=== PATIENT | male | born 1975 | race Caucasian/White ===

== ENCOUNTER 2023-10-20 09:08 | Outpatient (REF) | payer OTHER, SELFPAY ==
[2023-10-20 09:37] LABS: SARS-CoV-2 Ag NEGATIVE (NEGATIVE)
[2023-10-20 15:46] LABS: SARS-CoV-2 NAA NOT DETECTED (NOT DETECTE)
== END 2023-10-20 09:09 | disposition home or self-care (01) ==
LOC: LAB 09:08
PROVIDERS: PCP Nurse Practitioner; Visit Provider Nurse Practitioner
DX: Z20.822 Contact with and (suspected) exposure to COVID-19 (principal)
CPT/HCPCS: 87635; 87811

== ENCOUNTER 2024-01-19 01:28 | Emergency (ER) | payer OTHER, SELFPAY ==
[2024-01-19 01:33] VITALS: BP 143/106; PULSE 89; RESP 18; TEMP 36.6; O2SAT 99; BMI 20.4
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
--- NOTE | 2024-01-19 01:43 | ED.DENTAL1 ---
HPI - Dental/Oral General Chief complaint: Dental/Oral Stated complaint: dental/gum problem Time Seen by Provider: 01/19/24 01:40 Source: patient Mode of arrival: walk-in Limitations: no limitations History of Present Illness HPI Narrative: presents complaining of dental pain. Past history of substance abuse. No fever. Points to right pos. molar area as site of pain. No fever or problems swallowing Related Data Home Medications ?Medication ?Instructions ?Recorded ?Confirmed dextroamphetamine-amphetamine 30 30 mg PO BID 01/19/24 01/19/24 mg tablet gabapentin 300 mg capsule 300 mg PO BID 01/19/24 01/19/24 Allergies Allergy/AdvReac Type Severity Reaction Status Date / Time pencillin AdvReac stomach Uncoded 01/19/24 01:44 Review of Systems ROS Status of ROS 10 or more systems reviewed and unremarkable except as noted in history and below [facility] Medical History (Updated 01/19/24 @ 01:47 by Lydia Taveras) Drug abuse in remission ?F19.11 - Other psychoactive substance abuse, in remission (ICD-10) Neck pain ?M54.2 - Cervicalgia (ICD-10) ADD (attention deficit disorder) ?F98.8 - Other specified behavioral and emotional disorders with onset usually occurring in childhood and adolescence (ICD-10) Social History (Updated 01/19/24 @ 01:48 by Lydia Taveras) Within the past year, how often did you have a drink containing alcohol: monthly or less Smoking status: Current every day smoker Nicotine containing products detail: smokes 1pk daily Non-prescribed substance use: former substance user and cannabis (any form) Non-prescribed substance use details: currently uses THC but states use to use everything Exam Constitutional Vital Signs, click to edit/add: Last Vital Signs Temp 98 F 01/19/24 01:33 Pulse 89 01/19/24 01:33 Resp 18 01/19/24 01:33 BP 143/106 H 01/19/24 01:33 Pulse Ox 99 01/19/24 01:33 O2 Del Method Room Air 01/19/24 01:33 Common normals: no apparent distress, average body habitus, oriented x3, no limitations, healthy appearing, alert and well nourished HENRI Common normals: normocephalic and head/scalp atraumatic Other: diffuse dental caries Eye Common normals: EOMs intact bilaterally and conjunctivae normal Respiratory Common normals: normal respiratory effort, no retractions and no use of accessory muscles Cardio Common normals: regular rate, regular rhythm, S1 normal heart sound and S2 normal heart sound Extremity Common normals: normal to inspection and full ROM Neuro Common normals: oriented x3, CN's II-XII intact bilaterally, moves all extremities and no focal motor deficits Psych Appearance: grossly normal Course Vital Signs Vital signs: Vital Signs Temperature 98 F 01/19/24 01:33 Pulse Rate 89 01/19/24 01:33 Respiratory Rate 18 01/19/24 01:33 Blood Pressure 143/106 H 01/19/24 01:33 Pulse Oximetry 99 01/19/24 01:33 Oxygen Delivery Method Room Air 01/19/24 01:33 Temperature 98 F 01/19/24 01:33 Pulse Rate 89 01/19/24 01:33 Respiratory Rate 18 01/19/24 01:33 Blood Pressure 143/106 H 01/19/24 01:33 Pulse Oximetry 99 01/19/24 01:33 Oxygen Delivery Method Room Air 01/19/24 01:33 MDM - Dental/Oral MDM Narrative Medical decision making narrative: patient presents complaining of dental pain. has diffuse dental caries. Mild tenderness right upper pos. molar. No obvious swelling or lymph nodes. Describes throbbing pain. Will treat as an early abscess as he is at high risk given his exam findngs Discharge Plan Discharge Stand Alone Forms: Portal Instructions Chief Complaint: Dental/Oral Clinical Impression: Dental abscess Patient Disposition: Home, Self-Care Prescriptions / Home Meds: No Action dextroamphetamine-amphetamine 30 mg tablet 30 mg PO BID gabapentin 300 mg capsule 300 mg PO BID Print Language: [place] Instructions: Dental Abscess (ED) Additional Instructions: follow up with your family dentist later this week or early next week Referrals: Ashwini Marie NP [Primary Care Provider] - 1 week Discharge Date/Time: 01/19/24 02:18
--- NOTE | 2024-01-19 01:47 | PC.NURSE ---
Patient reports increased pain in right sided upper and lower jaw. states he has multiple bad teeth . reports his teeth have been breaking and rotting out for the past couple years. more so since he stopped taking Suboxone 2 years ago. upon exam all of patient s upper teeth have visible dental caries and multiple on the bottom. no visible abscess seen. patient states prior to coming he tried Oragel, Listerine, peroxide, gargling salt water, with no relief. patient states he does not want anything for pain due to his hx of substance abuse but would like antibiotics for his ongoing infection. patient denies any fever or chills
[2024-01-19] MEDS: CLINDAMYCIN HCL 150 MG CAPSULE 300 MG PO (02:08)
== END 2024-01-19 02:18 | disposition home or self-care (01) ==
PROVIDERS: Emergency Provider Internal Medicine; PCP Nurse Practitioner
DX: K04.7 Periapical abscess without sinus (principal); F19.11 Other psychoactive substance abuse, in remission; F17.210 Nicotine dependence, cigarettes, uncomplicated
CPT/HCPCS: 99283

== ENCOUNTER 2024-03-17 23:52 | Emergency (ER) | payer OTHER, SELFPAY ==
[2024-03-17 23:56] VITALS: BP 166/79; PULSE 68; TEMP 37.1; O2SAT 100; BMI 19.9
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
--- NOTE | 2024-03-18 00:28 | ED_ITS ---
HPI - Dental/Oral General Chief complaint: Dental/Oral Stated complaint: MOUTH PAIN Time Seen by Provider: 03/17/24 23:57 Source: patient Mode of arrival: walk-in Limitations: no limitations History of Present Illness HPI Narrative: This 48-year-old male with a history of periodontal disease presents for evaluation of mouth pain specifically in the right upper region of his mouth. He states he has been on clindamycin antibiotics and also Augmentin. He states he feels better when he is on the antibiotics and after being off of them for several days the pain recurs. He has been referred to several dentist and oral surgeons but has had issues with transportation so he has not been able to seek any dental care. He denies any fever. He denies any difficulty breathing or swallowing. He states the pain in his mouth is now radiating up into his left frontal sinus area. 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 - Other psychoactive substance abuse, in remission (ICD-10) Neck pain ?M54.2 - Cervicalgia (ICD-10) ADD (attention deficit disorder) ?F98.8 - Other specified behavioral and emotional disorders with onset usually occurring in childhood and adolescence (ICD-10) Social History (Updated 01/19/24 @ 01:48 by Lydia Taveras) Within the past year, how often did you have a drink containing alcohol: monthly or less Smoking status: Current every day smoker Nicotine containing products detail: smokes 1pk daily Non-prescribed substance use: former substance user and cannabis (any form) Non-prescribed substance use details: currently uses THC but states use to use everything Exam Narrative Exam Narrative: Vital signs and Nursing Notes reviewed: Blood pressure is noted to be elevated at 166/79 General: Thin adult male, awake, alert, oriented, no acute distress, lying comfortably on the stretcher HEENT: Normocephalic atraumatic, mucous membranes are moist and pink, eyes are clear, normal conjunctiva, vision is grossly intact, posterior pharynx is normal in appearance. There is diffuse periodontal disease. He has a couple of remaining teeth that are decayed with fillings in place however all of the teeth in the upper frontal region of the maxilla are decayed to the gumline. I do not appreciate any periapical abscess. There is no sign of necrotizing gingivitis. There is no pooling of secretions. Speech is clear. Neck: Supple, no meningeal signs, no anterior or posterior cervical lymphadenopathy Chest: Lungs are clear to auscultation with good air entry, there is no wheezing rhonchi or rales appreciated no accessory muscle use, patient is speaking in complete sentences-no chest wall tenderness to palpation CVS: Regular rate and rhythm S1-S2, no murmurs rubs or gallops, pulses are brisk and equal bilaterally Skin: Normal in appearance without rash,pallor, petechiae or purpura Neuro: No focal deficits Constitutional Vital Signs, click to edit/add: Last Vital Signs Temp 98.7 F 03/17/24 23:56 Pulse 68 03/17/24 23:56 Resp 18 03/17/24 23:56 BP 166/79 H 03/17/24 23:56 Pulse Ox 100 03/17/24 23:56 O2 Del Method Room Air 03/17/24 23:56 Course Vital Signs Vital signs: Vital Signs Temperature 98.7 F 03/17/24 23:56 Pulse Rate 68 03/17/24 23:56 Respiratory Rate 18 03/17/24 23:56 Blood Pressure 166/79 H 03/17/24 23:56 Pulse Oximetry 100 03/17/24 23:56 Oxygen Delivery Method Room Air 03/17/24 23:56 Temperature 98.7 F 03/17/24 23:56 Pulse Rate 68 03/17/24 23:56 Respiratory Rate 18 03/17/24 23:56 Blood Pressure 166/79 H 03/17/24 23:56 Pulse Oximetry 100 03/17/24 23:56 Oxygen Delivery Method Room Air 03/17/24 23:56 MDM - Dental/Oral MDM Narrative Medical decision making narrative: This patient with a history of periodontal disease who is waiting to see a dentist presents for evaluation of mouth pain. The pain he is having today is mostly in the left upper gumline. He has multiple decayed and decaying teeth. I do not appreciate any periapical abscess. There is no necrotizing gingivitis. He is not having any swelling of the tongue, uvular pharyngeal soft tissues. He has recently been on clindamycin and requests a different antibiotic. He has also been on Augmentin recently. He has not been on Pen-Vee K. I offered him Pen-Vee K which he is willing to try. He will be given 2 pain pills to take as needed. He states he has been clean from any narcotic medications for a period of time but is agreeable to taking 2 pain pills to take until the antibiotics can kick in. Discharge Plan Discharge Stand Alone Forms: Portal Instructions Chief Complaint: Dental/Oral Clinical Impression: Periodontal disease Patient Disposition: Home, Self-Care Time of Disposition Decision: 00:25 Condition: Good Prescriptions / Home Meds: No Action dextroamphetamine-amphetamine 30 mg tablet 30 mg PO BID gabapentin 300 mg capsule 300 mg PO BID Print Language: [place] Citizen Instructions: Periodontal Disease (DC) Referrals: Ashwini Marie NP [Primary Care Provider] - 1 week
[2024-03-18] MEDS: PENICILLIN V POTASSIUM 250 MG TABLET 500 MG PO (00:47)
[2024-03-18] MEDS: OXYCODONE HCL/ACETAMINOPHEN 5MG/325MG 2 TAB PO (00:47)
== END 2024-03-18 01:08 | disposition home or self-care (01) ==
PROVIDERS: Emergency Provider Emergency Medicine; PCP Nurse Practitioner
DX: K05.6 Periodontal disease, unspecified (principal); Z79.899 Other long term (current) drug therapy; F19.11 Other psychoactive substance abuse, in remission; F98.8 Other specified behavioral and emotional disorders with onset usually occurring in childhood and adolescence; F17.210 Nicotine dependence, cigarettes, uncomplicated; F12.90 Cannabis use, unspecified, uncomplicated
CPT/HCPCS: 99283

== ENCOUNTER 2024-04-23 21:25 | Emergency (ER) | payer OTHER, SELFPAY ==
[2024-04-23 21:32] VITALS: BP 131/92; PULSE 96; TEMP 37.3; O2SAT 99; BMI 20.4
--- NOTE | 2024-04-23 21:35 | PC.NURSE ---
Broken teeth and swollen reddened gums to top jaw.
--- NOTE | 2024-04-23 22:38 | ED_ITS ---
HPI - Dental/Oral General Chief complaint: Dental/Oral Stated complaint: MOUTH PAIN Time Seen by Provider: 04/23/24 22:36 Source: patient Mode of arrival: walk-in Limitations: no limitations History of Present Illness HPI Narrative: presents complaining of dental pain. has multiple dental caries and now mouth is sore. has chills . 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 - Other psychoactive substance abuse, in remission (ICD-10) Neck pain ?M54.2 - Cervicalgia (ICD-10) ADD (attention deficit disorder) ?F98.8 - Other specified behavioral and emotional disorders with onset usuall y occurring in childhood and adolescence (ICD-10) Social History (Updated 01/19/24 @ 01:48 by Lydia Taveras) Within the past year, how often did you have a drink containing alcohol: monthly or less Smoking status: Current every day smoker Nicotine containing products detail: smokes 1pk daily Non-prescribed substance use: former substance user and cannabis (any form) Non-prescribed substance use details: currently uses THC but states use to use everything Exam Constitutional Vital Signs, click to edit/add: Last Vital Signs Temp 99.2 F 04/23/24 21:32 Pulse 96 H 04/23/24 21:32 Resp 18 04/23/24 21:32 BP 131/92 H 04/23/24 21:32 Pulse Ox 99 04/23/24 21:32 O2 Del Method Room Air 04/23/24 21:32 Common normals: no apparent distress, average body habitus, oriented x3, no limitations, healthy appearing, alert and well nourished HENMO Other: diffuse dental caries Eye Common normals: EOMs intact bilaterally and conjunctivae normal Respiratory Common normals: normal respiratory effort, no retractions, no use of accessory muscles and clear to auscultation bilaterally Cardio Common normals: regular rate, regular rhythm, S1 normal heart sound and S2 normal heart sound Extremity Common normals: normal to inspection and full ROM Neuro Common normals: oriented x3, CN's II-XII intact bilaterally, moves all extremities and no focal motor deficits Psych Appearance: grossly normal Course Vital Signs Vital signs: Vital Signs Temperature 99.2 F 04/23/24 21:32 Pulse Rate 96 H 04/23/24 21:32 Respiratory Rate 18 04/23/24 21:32 Blood Pressure 131/92 H 04/23/24 21:32 Pulse Oximetry 99 04/23/24 21:32 Oxygen Delivery Method Room Air 04/23/24 21:32 Temperature 99.2 F 04/23/24 21:32 Pulse Rate 96 H 04/23/24 21:32 Respiratory Rate 18 04/23/24 21:32 Blood Pressure 131/92 H 04/23/24 21:32 Pulse Oximetry 99 04/23/24 21:32 Oxygen Delivery Method Room Air 04/23/24 21:32 MDM - Dental/Oral MDM Narrative Medical decision making narrative: patient has diffuse dental caries. Mild swelling of frontal pergingival. will treat as early abscess with amoxicillin and recommend follow up with his dentist Discharge Plan Discharge Stand Alone Forms: Portal Instructions Chief Complaint: Dental/Oral Clinical Impression: Dental abscess Patient Disposition: Home, Self-Care Prescriptions / Home Meds: No Action dextroamphetamine-amphetamine 30 mg tablet 30 mg PO BID gabapentin 300 mg capsule 300 mg PO BID Print Language: [place] Islander Instructions: Dental Abscess (ED) Additional Instructions: follow up with your dentist next week Referrals: Ashwini Marie NP [Primary Care Provider] - 1 week
[2024-04-23] MEDS: AMOXICILLIN 500 MG CAPSULE 1000 MG PO (22:55)
== END 2024-04-23 23:01 | disposition home or self-care (01) ==
PROVIDERS: Emergency Provider Internal Medicine; PCP Nurse Practitioner
DX: K04.7 Periapical abscess without sinus (principal); F17.200 Nicotine dependence, unspecified, uncomplicated
CPT/HCPCS: 99283

== ENCOUNTER 2024-07-28 09:49 | Outpatient (OUT) | payer SELFPAY ==
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
[2024-07-28 10:20] LABS: Basophils Absolute Auto 0.1 10^3/uL (0.0-0.1); Eosinophils Absolute Auto 0.4 10^3/uL (0.0-0.7); Eosinophils Percent Auto 4.6 % (0.9-7.0); Hematocrit 46.3 % (42.0-54.0); Hemoglobin 15.8 g/dL (14.0-18.0); Immature Granulocytes Abs Auto 0.04 10^3/uL (0.00-0.03); Immature Granulocytes Pct Auto 0.4 % (0.0-0.5); Lymphocytes Absolute Auto 1.7 10^3/uL (1.2-3.8); Lymphocytes Percent Auto 18.5 % (20.5-60.0); Mean Corpuscular HGB Conc 34.1 g/dL (29.9-35.2); Mean Corpuscular Hemoglobin 32.4 pg (25.9-34.0); Mean Corpuscular Volume 95.1 fL (80.0-94.0); Mean Platelet Volume 9.1 fL (9.5-13.5); Monocytes Absolute Auto 0.5 10^3/uL (0.3-0.8); Monocytes Percent Auto 5.7 % (1.7-12.0); Neutrophils Absolute Auto 6.4 10^3/uL (1.4-6.5); Neutrophils Percent Auto 69.8 % (43.0-75.0); Platelet Count 197 10^3/uL (150-450); Red Blood Count 4.87 10^6/uL (4.70-6.10); Red Cell Distribution Width 12.5 % (11.0-15.0); White Blood Count 9.2 10^3/uL (4.0-11.0)
[2024-07-28 10:32] LABS: Bilirubin Urine NEGATIVE (NEGATIVE); Blood Urine SMALL (NEGATIVE); Clarity Urine CLEAR (CLEAR); Color Urine YELLOW (YELLOW); Glucose Urine UA NEGATIVE (NEGATIVE); Ketones Urine NEGATIVE (NEGATIVE); Leukocyte Esterase Urine NEGATIVE (NEGATIVE); Nitrite Urine NEGATIVE (NEGATIVE); Protein Urine NEGATIVE (NEG/TRACE); Specific Gravity Urine 1.015 (1.005-1.025)
[2024-07-28 10:33] LABS: Urine Microscopic Indicated YES
[2024-07-28 10:40] LABS: WBC Urine NONE SEEN #/HPF (NONE SEEN)
[2024-07-28 10:41] LABS: Bacteria Urine NONE SEEN #/HPF (NONE SEEN); Cast Seen? NONE SEEN #/LPF (NONE SEEN); Crystals Seen? None Seen #/HPF (None Seen); Mucus Urine NONE SEEN (NONE SEEN); Squamous Epithelial Cell Urine NONE SEEN #/LPF (NONE/RARE)
[2024-07-28 11:36] LABS: Alanine Aminotransferase 62 U/L (16-63); Albumin Level 3.9 g/dL (3.4-5.0); Alkaline Phosphatase 97 U/L (46-116); Anion Gap 5.8; Aspartate Amino Transferase 52 U/L (15-37); BUN Creatinine Ratio 13.9; Bilirubin Total 0.7 mg/dL (0.2-1.0); Calcium 9.7 mg/dL (8.5-10.1); Carbon Dioxide 33.8 mmol/L (21.0-32.0); Chloride 99 mmol/L (98-107); Chol HDL Ratio 4.6; Cholesterol 211 mg/dL (<=200); Estimated GFR (African America >60 (>=60); Estimated GFR (Non-African Ame >60 (>=60); Globulin 4.1 g/dL; Glucose 83 mg/dL (74-106); HDL Cholesterol 46 mg/dL (40-60); Potassium 4.6 mmol/L (3.5-5.1); Sodium 134 mmol/L (136-145); Thyroid Stimulating Hormone 0.986 uIU/mL (0.358-3.740); Triglycerides 117 mg/dL (<=150); VLDL CHOLESTEROL 23.4 mg/dL
[2024-08-01 14:09] LABS: HBsAg Screen Negative (Negative); HCV Ab Reactive (Non Reactive); Hep A Ab, IgM Negative (Negative); Hep B Core Ab, IgM Negative (Negative)
== END 2024-07-28 09:50 | disposition home or self-care (01) ==
PROVIDERS: PCP Nurse Practitioner; Visit Provider Nurse Practitioner
DX: F90.9 Attention-deficit hyperactivity disorder, unspecified type (principal); Z72.0 Tobacco use; F32.A Depression, unspecified; B18.2 Chronic viral hepatitis C; F41.9 Anxiety disorder, unspecified
CPT/HCPCS: 36415; 80053; 80061; 80074; 81001; 84443; 85025; 87522

== ENCOUNTER 2024-08-24 11:00 | Outpatient (OUT) | payer MEDICAID, SELFPAY ==
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
[2024-08-24 11:32] LABS: Bilirubin Urine NEGATIVE (NEGATIVE); Blood Urine NEGATIVE (NEGATIVE); Clarity Urine CLEAR (CLEAR); Color Urine LT. YELLOW (YELLOW); Glucose Urine UA NEGATIVE (NEGATIVE); Ketones Urine NEGATIVE (NEGATIVE); Leukocyte Esterase Urine NEGATIVE (NEGATIVE); Nitrite Urine NEGATIVE (NEGATIVE); Protein Urine NEGATIVE (NEG/TRACE); Urobilinogen Urine 0.2 EU/dL (0.2-1.0)
[2024-08-24 11:40] LABS: Bacteria Urine TRACE #/HPF (NONE SEEN); Cast Seen? NONE SEEN #/LPF (NONE SEEN); Crystals Seen? None Seen #/HPF (None Seen); Mucus Urine SMALL (NONE SEEN); RBC Urine NONE SEEN #/HPF (0-2); Squamous Epithelial Cell Urine RARE #/LPF (NONE/RARE); WBC Urine 0-2 #/HPF (NONE SEEN)
[2024-08-25 05:07] LABS: HIV Ab/p24 Ag Screen Non Reactive (Non Reactive)
[2024-08-25 13:08] LABS: Rapid Plasma Reagin, Quant Non Reactive titer (NonRea<1:1)
[2024-08-27 00:07] LABS: Hepatitis C Genotype 1a (.)
== END 2024-08-24 11:01 | disposition home or self-care (01) ==
LOC: LAB 11:05
PROVIDERS: PCP Nurse Practitioner; Visit Provider Nurse Practitioner
DX: R31.21 Asymptomatic microscopic hematuria (principal); Z20.2 Contact with and (suspected) exposure to infections with a predominantly sexual mode of transmission
CPT/HCPCS: 36415; 81001; 86592; 87086; 87389; 87902

== ENCOUNTER 2025-08-01 02:59 | Emergency (ER) | payer MEDICAID, SELFPAY ==
--- OUTSIDE RECORDS SUMMARY | 2025-04-28 10:44 | XMS_ITS ---
Author Name Auto Generated Organization OHIP Care Team Providers Care Core Measures Abstractor Name Role Phone ASHWINI MARIE Attending Unavailable ASHWINI MARIE Attending Unavailable ASHWINI MARIE Attending Unavailable ASHWINI MARIE Attending Unavailable NON STAFF Primary Care Unavailable Nahun Hernandez Admitting Unavailable Nahun Hernandez Attending Unavailable Jake Whiting Attending Unavailable NON STAFF Primary Care Unavailable Jake Whiting Admitting Unavailable Jake Whiting Attending Unavailable Ashwini Marie Primary Care Unavailable Jake Whiting Admitting Unavailable Jake Whiting Attending Unavailable NO FAMILY, PHYSICIAN Primary Care Unavailable Jake Whiting Admitting Unavailable PROBLEMS DATE TYPE CONDITION / CODE ATTENDING STATUS [facility] 12/01/2024 Unknown Chronic viral hepatitis C / B18.2(ICD-10) Nahun Hernandez [facility] 12/01/2024 Unknown Unspecified arnol l hepatitis C without hepatic coma / B19.20(ICD-10) Jake Whiting [facility] PROCEDURES No Procedure Records Found RESULTS HEP C RT-PCR, QNT (NON-GRAPH) Collected: 04/28/2025 1 0:53 AM Status: F Source: [facility] TYPE CODE TESTS RESULT OUT OF RANGE REFERENCE UNITS LAB HCV QN Hepatitis C Quantitation HCV Not Detected . LAB HCVTESTINFO Test Information: Comment . Result Comment: The quantita tive range of this assay is 15 IU/mL to 100 million IU/mL. Performed at: [facility] [address] [id number] Data Management: Sarah Kelly MD, Phone: [phone] PERFORMED BY: [place] [address] PATHOLOGIST EC TEACHER MARINA PEREZ M.D. Performed By: #### HCV RNAQN T #### [facility] , [place] LIVER Observed: 12/01/2024 8:53 AM Status: COMPLETED Source: [facility] [place] [address] Ultrasound Report Signed Patient: Omar Castro MR#: [id number] : 1975 Acct:[id number] Age/Sex: 49 / M ADM Date: 12/01/24 Loc: Room: Type: [facility] Attending Dr: Jake Whiting [employer]IVER Ordering Provider: Jake Whiting APRN Date of Service: 12/01/24 US/US liver: B19.20 - Unspecified viral hepatitis C without hepatic coma Copies to: Jake Whiting APRN LIMITED ABDOMINAL ULTRASOUND: CLINICAL HISTORY: Hepatitis C COMPARISON: None TECHNIQUE: Grayscale and color Doppler images of the right upper quadrant organs were obtained. FINDINGS: Pancreas: Visualized portions appear unremarkable. Liver: Unremarkable. No mass. Hepatopedal flow is seen within the portal vein. Gallbladder: Unremarkable. CBD: 4.3 mm US/US liver IMPRESSION: NO ACUTE PROCESS. NO HEPATIC MASS.. Impression dictated by: Adin Cohen Jr., D.O.12/01/2024 8:53 AM Dictation Location: [place] [address] Tech: Taylor Delgado Transcribed By: PWS 12/01/24 08 Dictated By: Adin Cohen Jr, DO 12/01/24 08 Signed By: <Electronically signed by Adin Cohen Jr, DO in OV> 12/01/24 08 COMPLETE BLOOD COUNT AUTO DIFF Collected: 11/22/2024 11:40 AM Status: F Source: [facility] TYPE CODE TESTS RESULT OUT OF RANGE REFERENCE UNITS LAB WBC White Blood Count 7.5 Normal 4.1-10.5 10*3/uL LAB UNWBC Uncorrected WBC 7.5 Normal 4.1-10.5 10*3/uL LAB RBC Red Blood Count 4.69 Normal 3.90-5.60 10*6/u L LAB HGB Hemoglobin 15.1 Normal 13.0-17.0 g/dL LAB HCT Hematocrit 43.3 Normal 38.8-50.0 % LAB MCV Mean Corpuscular Volume 92.3 Normal 83.5-101 fL LAB MCH Mean Corpuscular Hemoglobin 32.1 Normal 27.5-35.2 pg LAB MCHC Mean Corpuscular HGB Conc 34.8 Normal 32.5-35.6 g/dL LAB RDW Red Cell Distribution Width 13.1 Normal 12.0-14.8 % LAB PLT Platelet Count 201 Normal 150-450 10*3/uL LAB MPV Mean Platelet Volume 7.6 Normal 6.6-10.1 fL LAB NE% Neutrophils % (Auto) 65.7 . % LAB LY% Lymphocytes % (Auto) 24.7 . % LAB MO% Monocytes % (Auto) 5.6 . % LAB EO% Eosinophils % (Auto) 3.1 . % LAB BA% Basophils % (Auto) 0.9 . % LAB NRBC% NRBC% 0.0 Normal 0-0.5 /100{WBC} LAB NE# Neutrophils # (Auto) 4.9 Normal 1.8-7.7 10*3/uL LAB LY# Lymphocytes # (Auto) 1.8 Normal 1.00-4.8 10*3/uL LAB MO# Monocytes # (Auto) 0.4 Normal 0.0-0.8 10*3/uL LAB EO# Eosinophils # (Auto) 0.2 Normal 0.0-0.45 10*3/uL LAB BA# Basophils # (Auto) 0.1 Normal 0.0-0.2 10*3/uL Result Comment: PERFORMED BY : [facility] [place] [address] PATHOLOGIST EC TEACHER JONES NGUYỄN M.D. Performed By: #### HBCAB, HC V RX PCR, HBSAB, HBSAG #### [facility] , #### PT, CMP, CBC #### [facility] [address] [place] [id number] [facility] COMPREHENSIVE METABOLIC PANEL Collected: 11/22/2024 1 1:40 AM Status: F Source: [facility] TYPE CODE TESTS RESULT OUT OF RANGE REFERENCE UNITS LAB GLU Glucose 109 High 70-100 mg/dL Result Comment: Random Gluco se Reference Range is dependent on time and content of last meal. Glucose of more than 200 mg/dL in a nonstressed, ambulatory subject supports the diagnosis of Diabetes Mellitus. ADA recommended reference range LAB BUN Blood Urea Nitrogen 15 Normal 7-25 mg/d L LAB CREATT Creatinine 0.91 Normal 0.70-1.30 mg/dL LAB GFReNR Estimated GFR >60.0 mL/Min LAB NA Sodium 139 Normal 136-145 mmol/L LAB K Potassium 4.1 Normal 3.5-5.1 mmol/L LAB CL Chloride 101 Normal 98-107 mmol/L LAB CO2 Carbon Dioxide 30.8 Normal 21.0-31.0 mmol/L LAB GAP Anion Gap 11.3 Normal 6.0-15.0 meq/L LAB CA Calcium 9.7 Normal 8.6-10.3 mg/dL LAB TP Total Protein 7.8 Normal 6.4-8.9 g/dL LAB ALB Albumin Level 4.8 Normal 3.5-5.7 g/dL LAB GLOB Globulin 3.0 g/dL LAB AGRATIO Albumin/Globulin Ratio 1.6 LAB BILIT Bilirubin,Total 1.1 High 0.3-1.0 mg/dL LAB AST Aspartate Amino Transferase 54 High 13-39 U/L LAB ALT Alanine Aminotransferase 63 High 7-52 U/L LAB ALP Alkaline Phosphatase 89 Normal 34-104 U/L Result Comment: PERFORMED BY : [place] [address] PATHOLOGIST EC TEACHER JONES NGUYỄN M.D. Performed By: #### HBCAB, HC V RX PCR, HBSAB, HBSAG #### [facility] , #### PT, CMP, CBC #### [facility] [address] [place], [place] [id number] [facility] PROTHROMBIN TIME INR Collected: 025 11:40 AM Status: F Source: [facility] TYPE CODE TESTS RESULT OUT OF RANGE REFERENCE UNITS LAB R PT Prothrombin Time 12.8 Normal 9.0-12.9 s Result Comment: A hematocrit value greater than 55% may lead to inaccurate results in coagulation testing. Patients having hematocrit values >55% require a special collection tube for coagulation studies. Please contact the laboratory at [phone] for redraw instructions. LAB INR INR 1.1 Result Comment: INR Therapeu tic Range A) Pre- and Peroperative OAT started two weeks before surgery. NOT HIP SURGERY: 1.5 - 2.5 HIP SURGERY: 2 - 3 B) Primary and secondary prevention of venous THROMBOSIS: 2 - 3 C) Active venous thrombosis, pulmonary embolism and prevention of recurrent venous thrombosis: 2 - 3 D) Prevention of arterial thromboembolism including patients with mechanical heart valves: 3 - 4.5 PERFORMED BY: [place] [address] PATHOLOGIST EC TEACHER JONES NGUYỄN M.D. Performed By: #### HBCAB, HC V RX PCR, HBSAB, HBSAG #### [facility] , #### PT, CMP, CBC #### [facility] [address] [place] [address] HEP C AB WRFX TO QNT PCR Collected: 11/22/2024 11:40 AM Status: F Source: [facility] TYPE CODE TESTS RESULT OUT OF RANGE REFERENCE UNITS LAB HCV AB. Hepatitis C Viru s Antibody Reactive Abnormal Alert Non Reactive LAB HCV QUANT Hepatitis C Quantitation See Final Results . LAB RESHCV RNA HCV RNA (International Units) [id number] . [IU]/mL LAB HCV loG10 HCV log10 7.161 . Result Comment: Result Units : log10 IU/mL LAB TEST INFO Test Information: Comment . Result Comment: The quantita tive range of this assay is 15 IU/mL to 100 million IU/mL. LAB INTERP Interpretation Comment . Result Comment: Positive HCV antibody screen with the presence of HCV RNA is consistent with active infection. Performed at: [address] [id number] Data Management: Gennaro Sherman PhD, Phone: [phone] Performed at: [facility] [address] [id number] Data Management: Sarah Kelly MD, Phone: [phone] Performed By: #### HBCAB, HC V RX PCR, HBSAB, HBSAG #### [facility] , #### PT, CMP, CBC #### [address] HEPATITIS B SURFACE ANTIBODY Collected: 11/22/2024 11:40 AM Status: F Source: [facility] TYPE CODE TESTS RESULT OUT OF RANGE REFERENCE UNITS LAB HBSAB Hepatitis B Surface Antibody Reactive . Result Comment: Non Reactive : Not immune to HBV infection. Equivocal: Unable to determine if anti-HBs is present at levels consistent with immunity. Reactive: Anti-HBs concentration detected at greater than 10 mIU/mL. Individual is considered to be immune to infection with HBV. Performed By: #### HBCAB, HC V RX PCR, HBSAB, HBSAG #### [facility] , #### PT, CMP, CBC #### [address] HEPATITIS B CORE ANTIBODY Collected: 11:40 AM Status: F Source: [facility] TYPE CODE TESTS RESULT OUT OF RANGE REFERENCE UNITS LAB HBCAB Hepatitis B Core Antibody Negative Negative Result Comment: Performed at : [facility] [address] [id number] Data Management: Gennaro Sherman PhD, Phone: [phone] Performed By: #### HBCAB, HC V RX PCR, HBSAB, HBSAG #### [facility] , #### PT, CMP, CBC #### [facility] [address] [place] [address] HEPATITIS B SURFACE ANTIGEN Collected: 11/22/2024 11:40 AM Status: F Source: [facility] TYPE CODE TESTS RESULT OUT OF RANGE REFERENCE UNITS LAB HBSAG SCR HBsAg Screen Negative Negative Result Comment: PERFORMED BY : [place] [address] PATHOLOGIST EC TEACHER JONES NGUYỄN M.D. Performed By: #### HBCAB, HC V RX PCR, HBSAB, HBSAG #### [facility] , #### PT, CMP, CBC #### [facility] [address] ALLERGIES DATE TYPE / CODE NAME / CODE REACTION SEVERITY SOURCE 05/11/2025 Drug Allergy/[id number] (SNOMED CT) No Known Allergies/[id number] 88(RXNORM) Unknown [facility] ENCOUNTERS ADMIT/DISCHARGE ACCOUNT NUMBER ADMITTING ENCOUNTER CLASS LOCATION SOURCE 04/28/2025/04/28/20 25 [id number] [facility] 01/11/2025/01/12/20 25 [id number] Ambulatory Building:[facility] 12/14/2024/12/14/19 25 [id number] Ambulatory Building:[facility] 12/01/2024/12/01/19 25 [id number] Nahun [facility] 12/01/2024/12/01/19 25 [id number] [facility] Wh[facility] 11/22/2024/11/22/19 25 [id number] Jake Wh[facility] 11/08/2024/11/08/19 [id number] Ambulatory Building:[facility] 08/24/2024/08/24/20 24 [id number] Ambulatory Building:[facility] PAYERS ENCOUNTER GUARANTOR PAYER SUBSCRIBER SOURCE 04/28/2025 Omar Walters[address] [place] [address]Ovn: () Primary Insurance:[facility] MedicaidPolicy Number: [id number] Date:6829-66-23OU [address] [place] [address]ER: Omar MccormackB: [id number] [place] [address]Tmu: () [facility] 04/28/2025 Secondary Insurance:Self PayPolicy Number: Effective Date:2025-04-28 NOT GIVENUNK [facility] 01/11/2025 OMAR CASTRODOB: [address], [place] [address]Mft: () Primary Insurance:[employer] [place] [place]: [id number] Date:2024-08-02 OMAR CASTRODOB: [id number], [place] [address] [facility] 12/14/2024 OMAR CASTRODOB: [address], [place] [address]Dpf: () Primary Insurance:[employer] [place] Number: [id number] Date:2024-08-02 OMAR WALTERSCHDOB: [id number], [place] [address] [facility] 12/01/2024 Omar Walters[address] [place] [address]Dxp: () Primary Insurance:[employer] [place] MedicaidPolicy Number: [id number] Date:[id number] [address]KN: Omar CastroDOB: [id number] [place] [address]Kir: () [facility] 12/01/2024 Secondary Insurance:Self PayPolicy Number: Effective Date:2024-11-22 NOT GIVENUNK [facility] 12/01/2024 Omar [address], [place] [address]Qko: (HP) Primary Insurance:[facility] MedicaidPolicy Number: [id number] Date:3378-86-13YD [address] [place] [address]OY: Omar WalterschDOB: [id number], [place] [address]Tzk: (HP) [facility] 12/01/2024 Secondary Insurance:Self PayPolicy Number: Effective Date:2024-11-28 [facility] 11/22/2024 Omar [address]ters[address], [place] [address]Uxd: (HP) Primary Insurance:[facility] MedicaidPolicy Number: [id number] Date:6907-37-74JC [address] [place] [address]II: Omar CastroDOB: [id number], [place] [address]Xhw: () [facility] 11/22/2024 Secondary Insurance:Self PayPolicy Number: Effective Date:2024-11-22 [facility] 11/08/2024 OMAR MCCORMACKB: [address], [place] [address]Nni: (HP) Primary Insurance:[employer] [place]: [id number] Date:2024-08-02 OMAR WALTERSCHDOB: [id number], [place] [address] [facility] 08/24/2024 OMAR WALTERSCHDOB: [address], [place] [address]Avh: (HP) Primary Insurance:[employer] [place] [place] Number: [id number] Date:2024-08-02 OMAR LUNDBERG: [id number] [place] [id number] [place] [address] [facility]
[2025-08-01] VITALS (24 sets, daily range): BP systolic 124–166; BP diastolic 82–98; PULSE 52–81; TEMP 36.6; O2SAT 98–100; BMI 20.4
--- NOTE | 2025-08-01 03:21 | ECG_ITS ---
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 Measurements Intervals [place] Rate: 59 P: 90 RI: 136 QRS: 78 QRSD: 92 T: 74 QT: 416 QTc: 416 Interpretive Statements 1100 Sinus rhythm 1102 Sinus arrhythmia 9110 normal ECG No previous ECG available for comparison Electronically Signed On 08-01-2025 19:56:33 EDT by GRISEL WEAVER M.D.
--- NOTE | 2025-08-01 03:22 | ED_ITS ---
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 Patient states the pain started last after eating fast food before going to work. He became nauseated at that time but did not vomit. He felt fine over the weekend and ate at [employer] before going into work earlier this evening. While at work he started having epigastric abdominal pain with nausea and several episodes of vomiting. He states before throwing up he became extremely diaphoretic. He was on his way home from work when he came to the emergency department. He denies any chest pain or shortness of breath. He denies any alcohol use. He does smoke cigarettes. He has not had any diarrhea or black tarry stools. He is quite thin and states he recently has been down approximately 6 to 7 pounds. He also has a rash on his nose and head and several sores on his back. 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 He has not had any fever. He has not had any hematemesis. Related Data Home Medications ?Medication ?Instructions ?Recorded ?Confirmed dextroamphetamine-amphetamine 30 30 mg PO BID 01/19/24 08/01/25 mg tablet gabapentin 300 mg capsule 300 mg PO BID 01/19/2408/01 Allergies Allergy/AdvReac Type Severity Reaction Status Date / Time No Known Drug Allergies Allergy Verified 08/01/25 03:14 Review of Systems ROS Status of ROS 10 or more systems reviewed and unremark able except as noted in history and below 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, in remission (ICD-10) Neck pain ?M54.2 - Cervicalgia (ICD-10) ADD (attention deficit disorder) ?F98.8 - Other specified behavioral and emotional disorders with onset usually occurring in childhood and adolescence (ICD-10) Social History (Updated 01/19/24 @ 01:48 by Lydia Taveras) Within the past year, how often did you have a drink containing alcohol: monthly or less Smoking status: Current every day smoker Nicotine containing products detail: smokes 1pk daily Non-prescribed substance use: former substance user and cannabis (any form) Non-prescribed substance use details: currently uses THC but states use to use everything Little interest or pleasure in doing things: not at all Feeling down, depressed, or hopeless: not at all Exam Narrative Exam Narrative: Vital signs and Nursing Notes reviewed: Patient is afebrile with a normal pulse, normal blood pressure, he is not hypoxic with pulse ox of 100% on room air General: Thin male, he is awake, alert, oriented, no acute distress, lying comfortably on the stretcher-no active vomiting HEENT: Normocephalic atraumatic, mucous membranes are moist and pink, eyes are clear, normal conjunctiva, vision is grossly intact, posterior pharynx is normal in appearance. No scleral icterus noted Neck: Supple, no meningeal signs, no anterior or posterior cervical lymphaden opathy Chest: Lungs are clear to auscultation with good air entry, there is no wheezing rhonchi or rales appreciated no accessory muscle use, patient is speaking in complete sentences-no chest wall tenderness to palpation CVS: Regular rate and rhythm S1-S2, no murmurs rubs or gallops, pulses are brisk and equal bilaterally ABD: Soft, no reproducible tenderness, no hepatosplenomegaly appreciated, n ondistended, nontender, no rebound guarding or rigidity, bowel sounds are normal, no pulsatile masses appreciated, femoral pulses are brisk and equal bilaterally Extremities: Moving all extremities, no lower extremity tenderness or swelling noted, negative Homans' sign, pulses are brisk and equal bilaterally Skin: There is a rash on both sides of the nose and middle of the forehead-pink sores, no petechia or purpura noted, they are also excoriated areas and sores on his back Neuro: No focal deficits Constitutional Vital Signs, click to edit/add: Last Vital Signs Temp 97.9 F 08/01/25 03:15 Pulse 54 L 08/01/25 06:50 Resp 14 08/01/25 06:50 BP 140/96 H 08/01/25 07:00 Pulse Ox 100 08/01/25 06:50 O2 Del Method Room Air 08/01/25 03:15 Course Vital Signs Vital signs: Vital Signs Temperature 97.9 F 08/01/25 03:15 Pulse Rate 63 08/01/25 03:15 Respiratory Rate 18 08/01/25 03:15 Blood Pressure 131/86 08/01/25 03:15 Pulse Oximetry 100 08/01/25 03:15 Oxygen Delivery Method Room Air 08/01/25 03:15 Temperature 97.9 F 08/01/25 03:15 Pulse Rate 54 L 08/01/25 06:50 Respiratory Rate 14 08/01/25 06:50 Blood Pressure 140/96 H 08/01/25 07:00 Pulse Oximetry 100 08/01/25 06:50 Oxygen Delivery Method Room Air 08/01/25 03:15 MDM - Abdominal Pain MDM Narrative Medical decision making narrative: This 50-year-old male presents for evaluation of epigastric abdominal pain with nausea and vomiting. The patient states this symptom started last , 5 days ago after eating fast food. He states he has been eating a lot of fast food recently because his mother who typically cooks for him has not been able to cook for him for the past week. He ate [employer] for dinner last night before going to work and while at work became nauseated and vomited several times. He states he became diaphoretic when vomiting. He is not having any chest pain or shortness of breath. He does have a history of hepatitis B and has had treatment for that in the past. He is a thin adult male, abdomen is soft, flat with no reproducible tenderness. Lungs are clear. Femoral pulses are brisk and equal bilaterally. EKG done upon arrival is a sinus rhythm with no acute changes. An IV was placed and he was medicated with IV fluids, Zofran Toradol and Pepcid. Routine labs are reviewed. He has normal white count and hemoglobin. Electrolytes are normal. Liver function test and lipase are both normal. Troponin is also normal. Reevaluation he is resting comfortably and feeling better. CT scan of the abdomen pelvis was ordered and is pending at the time of shift change. CT scan is negative for acute findings. The CT scan was discussed with the patient and he was given a copy for his records. He will be discharged home at this time with a prescription for Zofran and Pepcid with recommendation to cut back on fast food, follow a low-fat diet for period of time and follow-up closely with his family physician. Lab Data Attestation: I reviewed the patient's lab results. Labs: Lab Results 08/01/25 Range/Units 03:50 WBC 9.9 (4.0-11.0) 10^3/uL RBC 4.34 L (4.70-6.10) 10^6/uL Hgb 14.1 (14.0-18.0) g/dL Hct 40.9 L (42.0-54.0) % MCV 94.2 H (80.0-94.0) fL MCH 32.5 (25.9-34.0) pg MCHC 34.5 (29.9-35.2) g/dL RDW 11.9 (11.0-15.0) % Plt Count 172 (150-450) 10^3/uL MPV 9.2 L (9.5-13.5) fL Neut % (Auto) 67.4 (43.0-75.0) % Lymph % (Auto) 21.9 (20.5-60.0) % Elbert % (Auto) 4.8 (1.7-12.0) % Eos % (Auto) 4.8 (0.9-7.0) % Baso % (Auto) 0.8 (0.2-2.0) % Neut # (Auto) 6.7 H (1.4-6.5) 10^3/uL Lymph # (Auto) 2.2 (1.2-3.8) 10^3/uL Elbert # (Auto) 0.5 (0.3-0.8) 10^3/uL Eos # (Auto) 0.5 (0.0-0.7) 10^3/uL Baso # (Auto) 0.1 (0.0-0.1) 10^3/uL Abs Immat Gran (auto) 0.03 (0.00-0.03) 10^3/uL Imm/Tot Granulo (auto) 0.3 (0.0-0.5) % Sodium 141 (136-145) mmol/L Potassium 3.8 (3.5-5.1) mmol/L Chloride 105 (98-107) mmol/L Carbon Dioxide 32.0 (21.0-32.0) mmol/L Anion Gap 7.8 BUN 17.0 (7.0-18.0) mg/dL Creatinine 0.78 (0.70-1.30) mg/dL Est GFR ( Amer) >60 (>=60 mL/min/1.73m^2) Est GFR (Non-Af Amer) >60 (>=60 mL/min/1.73m^2) BUN/Creatinine Ratio 21.8 Glucose 97 (74-106) mg/dL Calcium 8.9 (8.5-10.1) mg/dL Total Bilirubin 0.5 (0.2-1.0) mg/dL AST 28 (15-37) U/L ALT 21 (16-63) U/L Alkaline Phosphatase 91 (46-116) U/L Troponin I High Sens 5.5 (4.0-76.1) pg/mL Total Protein 7.4 (6.4-8.2) g/dL Albumin 3.8 (3.4-5.0) g/dL Globulin 3.6 g/dL Albumin/Globulin Ratio 1.1 Lipase 22.0 (16.0-77.0) U/L ECG Data Attestation: I personally reviewed and interpreted this ECG as follows: (Sinus rhythm with sinus arrhythmia at 59 bpm, normal axis, no acute ST segment elevation or T wave inversion) Discharge Plan Discharge Chief Complaint: Abdominal Pain Clinical Impression: Abdominal pain, Gastritis Patient Disposition: Home, Self-Care Time of Disposition Decision: 07:07 Prescriptions / Home Meds: No Action dextroamphetamine-amphetamine 30 mg tablet 30 mg PO BID gabapentin 300 mg capsule 300 mg PO BID Print Language: Micronesian Referrals: Ashwini Marie NP [Primary Care Provider, Family Practice] - 1 week
--- NOTE | 2025-08-01 03:28 | PC.NURSE ---
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 onset of this on and off abdomen pain on 07/28/2025, but tonight around 01:00 am while at work abdomen cam back with 1 episode of vomiting. this patient rate his abdomen pain 4/10 dull non -radiating. this patient voices no other complaints and shows no signs of distress
[2025-08-01] MEDS: FAMOTIDINE/PF 20 MG/2 ML VIAL IV (03:58)
[2025-08-01] MEDS: KETOROLAC TROMETHAMINE 30 MG/ML VIAL IVP (03:58)
[2025-08-01] MEDS: 0.9 % SODIUM CHLORIDE 1,000 ML 1000 ML IV (03:58)
[2025-08-01 04:00] LABS: Hematocrit 40.9 % (42.0-54.0); Hemoglobin 14.1 g/dL (14.0-18.0); Immature Granulocytes Abs Auto 0.03 10^3/uL (0.00-0.03); Immature Granulocytes Pct Auto 0.3 % (0.0-0.5); Lymphocytes Absolute Auto 2.2 10^3/uL (1.2-3.8); Mean Corpuscular HGB Conc 34.5 g/dL (29.9-35.2); Mean Corpuscular Hemoglobin 32.5 pg (25.9-34.0); Mean Corpuscular Volume 94.2 fL (80.0-94.0); Platelet Count 172 10^3/uL (150-450); Red Blood Count 4.34 10^6/uL (4.70-6.10); White Blood Count 9.9 10^3/uL (4.0-11.0)
[2025-08-01 04:17] LABS: Alanine Aminotransferase 21 U/L (16-63); Albumin Globulin Ratio 1.1; Albumin Level 3.8 g/dL (3.4-5.0); Alkaline Phosphatase 91 U/L (46-116); Anion Gap 7.8; Aspartate Amino Transferase 28 U/L (15-37); Blood Urea Nitrogen 17.0 mg/dL (7.0-18.0); Calcium 8.9 mg/dL (8.5-10.1); Carbon Dioxide 32.0 mmol/L (21.0-32.0); Chloride 105 mmol/L (98-107); Estimated GFR (African America >60 (>=60 mL/min/1.73m^2); Estimated GFR (Non-African Ame >60 (>=60 mL/min/1.73m^2); Globulin 3.6 g/dL; Glucose 97 mg/dL (74-106); Potassium 3.8 mmol/L (3.5-5.1); Sodium 141 mmol/L (136-145); Total Protein 7.4 g/dL (6.4-8.2)
[2025-08-01 04:20] LABS: Lipase 22.0 U/L (16.0-77.0)
== END 2025-08-01 07:32 | disposition home or self-care (01) ==
PROVIDERS: Emergency Provider Emergency Medicine; PCP Nurse Practitioner
DX: K29.70 Gastritis, unspecified, without bleeding (principal); R10.13 Epigastric pain; B19.10 Unspecified viral hepatitis B without hepatic coma; F17.210 Nicotine dependence, cigarettes, uncomplicated
CPT/HCPCS: 36415; 74177; 80053; 83690; 84484; 85025; 93005; 96361; 96374; 96375; 99285; J1885; J2405; J3490; Q9967